=== PATIENT | female | born 1985 | race Caucasian/White ===

== ENCOUNTER 2018-12-16 13:56 | Emergency (ER) | payer OTHER ==
[~2018-12-16] VITALS: Ht 167.6 cm; Wt 78.0 kg
[~2018-12-16 13:56] MED LIST: PRENATAL VITS
--- NOTE | 2018-12-16 14:03 | NUR ---
PT TO ER BED 5
[2018-12-16 14:10] VITALS: BP 100/65
--- NOTE | 2018-12-16 14:20 | NUR ---
PT BIB SELF TO THE ED WITH THE CHIEF C/O LEFT FORE ARM PAIN SINCE YESTERDAY. TOOK IBUPROFEN LAST NIGHT. PT HAD CUT ON HER LEFT FOREARM 6 MONTHS AGO. HEALED WOUND NOTED ON LEFT FOREARM. PT STATES PAIN AT THE HEALED WOUND SITE 01/06 AT THIS TIME. PT ALSO REPORTS STINGING AND ITCHY SENSATION AT THE SITE. DENIES ANY RECENT FEVER. DENIES N/V/D. DENIES ANY OTHER PROBLEM AT THIS TIME. POSITIONED FOR COMFORT. ER AWARE.
--- NOTE | 2018-12-16 14:55 | NUR ---
PT EVALUATED BY IN FLIGHT CREW MEMBER.
[2018-12-16 15:07] VITALS: BP 106/74
== END 2018-12-16 15:05 | disposition home or self-care (01) ==
LOC: MED 13:56
DX: R20.2 Paresthesia of skin (principal); L91.0 Hypertrophic scar; Z79.899 Other long term (current) drug therapy
CPT/HCPCS: 81002; 81025; 99283